=== PATIENT | male | born 1990 | race African-American/Black ===

== ENCOUNTER 2017-10-31 12:30 | Emergency (ER) | payer MEDICAID, OTHER ==
[~2017-10-31] VITALS: Ht 172.7 cm; Wt 54.0 kg
--- NOTE | 2017-10-31 12:36 | NUR ---
AMBULATORY IN A STEADY GAIT TO ED BED ,PT IS C/O N/V/D SINCE WEDNESDAY, EPIGASTRIC PAIN TODAY. FEELING WEAK. NAD VSS RR EVEN AND UNLABORED. PENDING ER MD EVALUATION
[2017-10-31] MEDS ORDERED: LIDOCAINE VISCOUS 2% UD 15 ML UDC ONE (13:13)
[2017-10-31] MEDS ORDERED: ONDANSETRON HCL/PF 4 MG/2 ML VIAL ONE (13:14)
[2017-10-31] MEDS ORDERED: MAG HYDROX/AL HYDROX/SIMETH 30 ML UDC ONE (13:14)
--- NOTE | 2017-10-31 13:20 | NUR ---
IV ACCESS STARTED. BLOOS DRAWN FOR LABS. MEDICATED ORDERED.
[2017-10-31 13:21] LABS: BASOPHILS % (AUTO) 0.3 % (0.0-2.0); EOSINOPHILS % (AUTO) 0.9 % (0.0-6.0); HEMATOCRIT 44 % (39-51); HEMOGLOBIN 14.2 g/dL (13.5-17.5); LYMPHOCYTES # (AUTO) 0.8 /CMM (0.8-4.8); MEAN CORPUSCULAR HEMOGLOBIN 29 PG (26.0-33.0); MEAN CORPUSCULAR HGB CONC 33 g/dl (31.0-36.0); MEAN CORPUSCULAR VOLUME 89 fL (80-96); MONOCYTES # (AUTO) 0.9 /CMM (0.1-1.30); MONOCYTES % (AUTO) 7.8 % (2.0-12.0); PLATELET COUNT (AUTO) 199 /CMM (150-450); RDW COEFFICIENT OF VARIATION 12.9 (11.5-15.0); RED BLOOD CELL COUNT(AUTO) 4.88 MIL/uL (4.5-6.0); WHITE BLOOD COUNT (AUTO) 11.8 K/uL (4.3-11.0)
[2017-10-31] MEDS ORDERED: MAG HYDROX/AL HYDROX/SIMETH 30 ML UDC PO ONE (13:30)
[2017-10-31] MEDS ORDERED: IV NS 0.9% 1,000 ML BAG IV ONE (13:30)
[2017-10-31] MEDS ORDERED: LIDOCAINE VISCOUS 2% UD 15 ML UDC MM ONE (13:30)
[2017-10-31] MEDS ORDERED: ONDANSETRON HCL/PF 4 MG/2 ML VIAL IVP ONE (13:30)
[2017-10-31 13:33] LABS: CALCIUM, SERUM 9.2 mg/dL (8.5-10.1); POTASSIUM 3.5 mmol/L (3.5-5.1)
[2017-10-31 13:38] LABS: ALBUMIN 3.6 g/dL (3.4-5.0); BILIRUBIN,DIRECT 0.1 mg/dL (0.0-0.2); BILIRUBIN,TOTAL 0.2 mg/dL (0.2-1.0); TOTAL PROTEIN, SERUM 8.1 g/dL (6.4-8.2)
[2017-10-31] MEDS ORDERED: METOCLOPRAMIDE HCL 10 MG/2 ML VIAL IV ONE (14:00)
[2017-10-31] MEDS ORDERED: METOCLOPRAMIDE HCL 10 MG/2 ML VIAL ONE (14:08)
--- NOTE | 2017-10-31 15:00 | NUR ---
IV removed. Catheter intact and site benign. Pressure and 4x4 applied to site. No bleeding noted.
--- NOTE | 2017-10-31 15:28 | NUR ---
Patient discharged to home in stable condition. Written and verbal after care instructions given. Patient verbalizes understanding of instruction.
[2017-10-31 15:31] VITALS: BP 117/74
[2017-10-31] MEDS ORDERED: EMTR1TAB17 PO (21:43)
[2017-10-31] MEDS ORDERED: DOLU10TA PO (21:44)
== END 2017-10-31 15:33 | disposition home or self-care (01) ==
LOC: ER 12:31
DX: K29.70 Gastritis, unspecified, without bleeding (principal); F12.10 Cannabis abuse, uncomplicated
CPT/HCPCS: 36415; 80048; 80076; 83690; 85025; 96361; 96374; 96375; 99284; A4606; J2405; J2765; J7030; Z7610

== ENCOUNTER 2017-10-31 17:28 | Inpatient (IN) | payer OTHER ==
[~2017-10-31] VITALS: Ht 172.7 cm; Wt 54.0 kg
[2017-10-31] MEDS ORDERED: IV NS 0.9% 1,000 ML BAG IV ONE (18:00)
[2017-10-31] MEDS ORDERED: FAMOTIDINE (20 MG) 20 MG TABLET PO ONE (18:00)
--- NOTE | 2017-10-31 18:00 | NUR ---
PT CAME BACK FOR SAME COMPLAINTS PREVIOUS/EARLIER ER VISIT- NAUSEA AND VOMITING. PER PT HE FELT BETTER AFTER DISCHARGE BUT EVENTUALLY STARTED THROWING UP AGAIN WITH NAUSEA, TOOK PRESCRIBED MEDS WITH NO RELIEF. SEEN BY ASSISTANT PLANT MANAGER FOR EVAL. IV ACCESS STARTED. MEDICATED ORDERED. SAFETY AND COMFORT MEASURES PROVIDED. WILL MONITOR.
[2017-10-31] MEDS ORDERED: FAMOTIDINE (20 MG) 20 MG TABLET ONE (18:07)
[2017-10-31] MEDS ORDERED: PROCHLORPERAZINE EDISYLATE 10 MG/2 ML VIAL ONE (18:18)
[2017-10-31] MEDS ORDERED: PROCHLORPERAZINE EDISYLATE 10 MG/2 ML VIAL IVP ONE (18:30)
[2017-10-31] MEDS ORDERED: IOHEXOL-300 100 ML VIAL IV ONE (19:11)
--- NOTE | 2017-10-31 19:16 | NUR ---
REPORT RECEIVED FROM JORDAN FRANCOIS FOR ROSEANNA.
[2017-10-31] MEDS ORDERED: HYDROMORPHONE INJ 2 MG/ML DISP.SYRIN ONE (19:22)
--- NOTE | 2017-10-31 19:25 | NUR ---
REPORT GIVEN TO STEFANY ORTEGA FOR ROSEANNA.
[2017-10-31] MEDS ORDERED: HYDROMORPHONE 1 MG/1 ML DISP.SYRIN IV ONE (19:30)
[2017-10-31] MEDS ORDERED: EMTR1TAB17 PO (21:43)
[2017-10-31] MEDS ORDERED: DOLU10TA PO (21:44)
[2017-10-31] MEDS ORDERED: CIPROFLOXACIN IV RTU 400 MG in PREMIX 1 EA IV SCH (22:00)
[2017-10-31] MEDS ORDERED: FLAGYL/NS RTU 500 MG/100 ML PIGGYBACK IV ONE (22:00)
[2017-10-31] MEDS ORDERED: CIPROFLOXACIN IV RTU 200 ML IV ONE (22:06)
--- NOTE | 2017-10-31 22:10 | NUR ---
LAB AT BEDSIDE TO DRAW BLOOD CULT X 2.
--- NOTE | 2017-10-31 22:16 | NUR ---
ASSIGNED TO MED SURG RM#: [id number], DX: PERIRECTAL ABSCESS, ACCEPTING: NATALIA VUONG NP
[2017-10-31 22:28] LABS: BASOPHILS % (AUTO) 0.1 % (0.0-2.0); HEMATOCRIT 37 % (39-51); HEMOGLOBIN 12.1 g/dL (13.5-17.5); LYMPHOCYTES # (AUTO) 0.8 /CMM (0.8-4.8); LYMPHOCYTES % (AUTO) 9.5 % (20.0-44.0); MEAN CORPUSCULAR HEMOGLOBIN 30 PG (26.0-33.0); MEAN CORPUSCULAR HGB CONC 33 g/dl (31.0-36.0); MEAN CORPUSCULAR VOLUME 92 fL (80-96); MONOCYTES # (AUTO) 0.4 /CMM (0.1-1.30); MONOCYTES % (AUTO) 4.6 % (2.0-12.0); NEUTROPHILS # (AUTO) 7.7 /CMM (1.8-8.9); NEUTROPHILS % (AUTO) 85.8 % (43.0-81.0); PLATELET COUNT (AUTO) 178 /CMM (150-450); RDW COEFFICIENT OF VARIATION 13.7 (11.5-15.0); RED BLOOD CELL COUNT(AUTO) 4.02 MIL/uL (4.5-6.0); WHITE BLOOD COUNT (AUTO) 8.9 K/uL (4.3-11.0)
--- NOTE | 2017-10-31 22:32 | NUR ---
Thuan madsen in [facility] - 10/31/17 at 2233 by TOBY ENDORSED TO MELISSA PALACIO FOR ROSEANNA.
--- NOTE | 2017-10-31 22:33 | NUR ---
ENDORSED TO JORDAN PALACIO FOR ROSEANNA. PT ADMIT TO MS RM 322.1.
[2017-10-31 22:35] VITALS: BP 117/72
--- NOTE | 2017-10-31 22:37 | NUR ---
APARTMENT COMMUNITY ASSISTANT MANAGER NOTES PT ARRIVED IN UNIT VIA WHEELCHAIR, ACCOMPANIED BY ER STAFF. PT IS ALERT AND ORIENTED X 4, NO SOB, BREATHING EVEN AND UNLABORED, DENIES NAUSEA/VOMITING AND PAIN AT THIS TIME. ORIENTED PT TO ROOM, UNIT, ADMISSION PROCESS, CALL LIGHT AND USE OF CALL LIGHT, PT VERBALIZED UNDERSTANDING. PATIENT WITH GOOD SAFETY AWARENESS, PLACED BED IN LOW POSITION, LOCKED IN PLACE, CALL LIGHT WITHIN EASY REACH. WILL CONTINUE TO MONITOR PT.
--- NOTE | 2017-10-31 22:37 | NUR ---
FLAGYL 500MG IV ENDORSED TO FLOOR.
--- NOTE | 2017-10-31 22:40 | NUR ---
PT TRANSPORTED TO MS 322.1 VIA WC WITH EMT. VSS.
[2017-10-31 22:43] LABS: CALCIUM, SERUM 8.2 mg/dL (8.5-10.1); CREATININE 0.8 mg/dL (0.6-1.3); INR 1.1 (0.87-1.13); POTASSIUM 3.5 mmol/L (3.5-5.1)
[2017-10-31 22:45] LABS: BILIRUBIN,DIRECT 0.1 mg/dL (0.0-0.2); BILIRUBIN,TOTAL 0.2 mg/dL (0.2-1.0); TOTAL PROTEIN, SERUM 6.8 g/dL (6.4-8.2)
[2017-10-31] MEDS ORDERED: MAGNESIUM HYDROXIDE 30 ML UDC PO PRN (23:30)
[2017-10-31] MEDS ORDERED: DOLUTEGRAVIR 10 MG PO SCH (23:30)
[2017-10-31] MEDS ORDERED: DESCOVY PO SCH (23:30)
[2017-10-31] MEDS ORDERED: ACETAMINOPHEN 325 MG TABLET PO PRN (23:30)
[2017-10-31] MEDS ORDERED: HYDROCODONE/APAP 5/325MG 1 EACH TABLET PO PRN (23:30)
[2017-10-31] MEDS ORDERED: Z GUARD REMEDY 2 OZ OINT TP PRN (23:30)
[2017-10-31] MEDS ORDERED: MAG HYDROX/AL HYDROX/SIMETH 30 ML UDC PO PRN (23:30)
[2017-10-31] MEDS: IV NS 0.9% 1,000 ML IV PRN (23:46)
[2017-11-01] MEDS ORDERED: CIPROFLOXACIN IV RTU 400 MG in PREMIX 1 EA IV SCH ×2
--- NOTE | 2017-11-01 00:45 | NUR ---
RN NOTES CIPRO IV NOT ADMINISTERED, FIRST DOSE STARTED IN ER.
[2017-11-01] MEDS: ONDANSETRON HCL/PF 4 MG/2 ML VIAL IVP PRN ×2 (01:17→07:57)
[2017-11-01] MEDS: MORPHINE SULFATE INJ 2 MG/ML DISP.SYRIN IV PRN ×2 (01:39→10:52)
[2017-11-01] MEDS ORDERED: METRONIDAZOLE 500MG/ NS 100ML 100 ML IV ONE (05:39)
[2017-11-01] MEDS: METRONIDAZOLE 500MG/ NS 100ML 500 MG in PREMIX 1 EA IV SCH ×5 (05:42→18:36)
--- NOTE | 2017-11-01 07:14 | NUR ---
RN CLOSING NOTES PATIENT IN BED, ALERT, AWAKE AND ORIENTED, ALL PATIENT'S NEEDS ATTENDED TO THROUGHOUT THE SHIFT. IVF INFUSING WELL ORDERED VIA OUTER DIAMETER GRINDER ON RAC. PLACED BED IN LOW POSITION, LOCKED IN PLACE AND CALL LIGHT WITHIN EASY REACH. WILL ENDORSE TO AM SHIFT NURSE FOR CONTINUITY OF CARE.
--- NOTE | 2017-11-01 07:30 | NUR ---
PT RECEIVED RESTING COMFORTABLY IN BED. NO S/S OR C/O PAIN OR DISTRESS NOTED. SIDE RAILS UP X2, CALL LIGHT LEFT WITHIN REACH. WILL CONTINUE PLAN OF CARE.
[2017-11-01 08:00] VITALS: BP 126/74
[2017-11-01] MEDS: CIPROFLOXACIN IV RTU 400 MG in PREMIX 1 EA IV SCH ×2 (10:38→21:51)
[2017-11-01] MEDS: POLYETHYLENE GLYCOL 3350 17 GM POWD.PACK PO SCH ×2 (14:00→22:00)
[2017-11-01 16:00] VITALS: BP 110/67
[2017-11-01 16:13] LABS: BASOPHILS % (AUTO) 0.3 % (0.0-2.0); EOSINOPHILS % (AUTO) 0.2 % (0.0-6.0); HEMATOCRIT 39 % (39-51); HEMOGLOBIN 12.6 g/dL (13.5-17.5); LYMPHOCYTES # (AUTO) 1.2 /CMM (0.8-4.8); LYMPHOCYTES % (AUTO) 23.2 % (20.0-44.0); MEAN CORPUSCULAR HEMOGLOBIN 30 PG (26.0-33.0); MEAN CORPUSCULAR HGB CONC 33 g/dl (31.0-36.0); MEAN CORPUSCULAR VOLUME 92 fL (80-96); MONOCYTES # (AUTO) 0.6 /CMM (0.1-1.30); MONOCYTES % (AUTO) 11.6 % (2.0-12.0); NEUTROPHILS # (AUTO) 3.4 /CMM (1.8-8.9); NEUTROPHILS % (AUTO) 64.7 % (43.0-81.0); PLATELET COUNT (AUTO) 192 /CMM (150-450); RDW COEFFICIENT OF VARIATION 13.6 (11.5-15.0); WHITE BLOOD COUNT (AUTO) 5.2 K/uL (4.3-11.0)
[2017-11-01 16:25] LABS: CALCIUM, SERUM 7.9 mg/dL (8.5-10.1); CREATININE 0.8 mg/dL (0.6-1.3); MAGNESIUM 1.9 mg/dL (1.8-2.4); PHOSPHORUS 3.3 mg/dL (2.5-4.9); POTASSIUM 3.2 mmol/L (3.5-5.1)
[2017-11-01 16:37] LABS: THYROID STIMULATING HORMONE 1.895 uIU/mL (0.358-3.74)
--- NOTE | 2017-11-01 18:32 | NUR ---
CHANGE OF SHIFT REPORT PT RESTING COMFORTABLY IN BED. NO S/S OR C/O PAIN OR DISTRESS NOTED. SIDE RAILS UP X2, CALL LIGHT LEFT WITHIN REACH. PT KEPT CLEAN, DRY, AND COMFORTABLE. NO SIGNIFICANT CHANGES SINCE PREVIOUS SHIFT. WILL GIVE REPORT TO MEENAKSHI ORTEGA.
[2017-11-01 20:00] VITALS: BP 125/75
--- NOTE | 2017-11-01 20:00 | NUR ---
RN NOTES PATIENT IS ALERT AND ORIENTED X4, NO SOB, NO RESPIRATORY DISTRESS, NO COMPLAIN OF ABDOMINAL PAIN, SEEN AMBULATING IN ROOM AND HALLWAY. ON CLEAR LIQUID DIET WILL ADVANCE TOLERATED, FAMILY MEMBERS AT THE BEDSIDE, WILL CONTINUE TO MONITOR
[2017-11-01 22:00] VITALS: BP 125/75
[2017-11-01] MEDS ORDERED: ZOLPIDEM TARTRATE 5 MG TABLET PO ONE (23:00)
[2017-11-02] MEDS: METRONIDAZOLE 500MG/ NS 100ML 500 MG in PREMIX 1 EA IV SCH ×4 (00:10→17:59)
[2017-11-02] MEDS: IV NS 0.9% 1,000 ML IV PRN (05:43)
--- NOTE | 2017-11-02 06:30 | NUR ---
RN NOTES PATIENT IS ALERT AND AWAKE, NO DISTRESS, DENIES ABDOMINAL PAIN DURING SHIFT, SLEPT FOR 6 HOURS, ALL IV ABX GIVEN, NO ADVERSE CHANGE OF CONDITION DURING SHIFT, NEEDS ATTENDED, CALL LIGHT WITHIN REACH.
[2017-11-02 06:58] LABS: BASOPHILS % (AUTO) 0.5 % (0.0-2.0); EOSINOPHILS % (AUTO) 1.6 % (0.0-6.0); HEMATOCRIT 40 % (39-51); LYMPHOCYTES # (AUTO) 1.3 /CMM (0.8-4.8); LYMPHOCYTES % (AUTO) 27.1 % (20.0-44.0); MEAN CORPUSCULAR HEMOGLOBIN 31 PG (26.0-33.0); MEAN CORPUSCULAR HGB CONC 33 g/dl (31.0-36.0); MEAN CORPUSCULAR VOLUME 93 fL (80-96); MONOCYTES # (AUTO) 0.5 /CMM (0.1-1.30); MONOCYTES % (AUTO) 9.2 % (2.0-12.0); NEUTROPHILS % (AUTO) 61.6 % (43.0-81.0); PLATELET COUNT (AUTO) 180 /CMM (150-450); RDW COEFFICIENT OF VARIATION 13.7 (11.5-15.0); RED BLOOD CELL COUNT(AUTO) 4.27 MIL/uL (4.5-6.0); WHITE BLOOD COUNT (AUTO) 4.9 K/uL (4.3-11.0)
--- NOTE | 2017-11-02 07:22 | NUR ---
MS RN OPENING NOTES RECEIVED PATIENT AWAKE IN BED IN NO ACUTE SIGNS OF DISTRESS. ALERT AND ORIENTED X4. ABLE TO MAKE NEEDS KNOWN, NO C/O PAIN OR DISCOMFORTS VOICED AT THIS TIME. ON ROOM AIR, BREATHING EVEN AND UNLABORED. IV ACCESS ON RIGHT AC G #20 INTACT AND PATENT, IVF OF NS @ 50ML/HR INFUSING, NO S/S OF INFILTRATION NOTED. SAFETY MEASURES IN PLACE. BED IN LOW/LOCKED POSITION WITH SIDE-RAILS UP X2. CALL LIGHT WITHIN REACH. WILL CONTINUE TO MONITOR PT ACCORDINGLY.
[2017-11-02 07:26] LABS: CALCIUM, SERUM 8.2 mg/dL (8.5-10.1); MAGNESIUM 1.8 mg/dL (1.8-2.4); PHOSPHORUS 4.1 mg/dL (2.5-4.9); POTASSIUM 3.3 mmol/L (3.5-5.1)
[2017-11-02 08:00] VITALS: BP 122/69
--- NOTE | 2017-11-02 09:26 | NUR ---
RN NOTES PATIENT ON FULL LIQUIDS DIET AT BREAKFAST AND TOLERATED WITHOUT C/O N/V AND NO COMPLAINTS OF ABDOMINAL PAIN. PT ADVANCED DIET TO SOFT AT LUNCH TIME . WILL CONTINUE TO MONITOR.
[2017-11-02] MEDS ORDERED: LEVO500T75 PO (10:39)
[2017-11-02] MEDS: CIPROFLOXACIN IV RTU 400 MG in PREMIX 1 EA IV SCH (11:25)
[2017-11-02] MEDS ORDERED: POTASSIUM CHLORIDE 20 MEQ TAB.PRT.SR PO SCH (12:00)
[2017-11-02 16:00] VITALS: BP 120/72
--- NOTE | 2017-11-02 19:08 | NUR ---
RN DISCHARGED NOTES PATIENT DISCHARGED HOME IN STABLE CONDITION. A/O X4, SAME VERBALLY RESPONSIVE WITH NO C/O PAIN OR DISCOMFORTS VOICED DURING DISCHARGE. . V/S TAKEN AND RECORDED. ALL BELONGINGS ACCOUNTED FOR AND SIGNED FOR. SMOKING SECESSION EDUCATION AND OTHER HEALTH TEACHINGS GIVEN TO PT AND VERBALIZED UNDERSTANDING. PT LEFT UNIT AT 1900 AMBULATORY ACCOMPANIED BY HIS SISTER. MD AND CHARGE NURSE AWARE OF DISCHARGE.
[2017-11-03 08:10] LABS: *BASOS 0 % (Not Estab.); *EOS 2 % (Not Estab.); *EOS, ABSOLUTE 0.1 x10E3/uL (0.0-0.4); *HCT 37.8 % (37.5-51.0); *HGB 12.6 g/dL (13.0-17.7); *IMMATURE GRANULOCYTES 0 % (Not Estab.); *LYMPHOCYTES 32 % (Not Estab.); *LYMPHS, ABSOLUTE 1.5 x10E3/uL (0.7-3.1); *MCH 30.4 pg (26.6-33.0); *MCHC 33.3 g/dL (31.5-35.7); *MCV 91 fL (79-97); *MONOCYTES 8 % (Not Estab.); *MONOS, ABSOLUTE 0.4 x10E3/uL (0.1-0.9); *NEUTROPHILS 58 % (Not Estab.); *NEUTROPHILS, ABSOLUTE 2.7 x10E3/uL (1.4-7.0); *PLT 198 x10E3/uL (150-379); *RBC 4.14 x10E6/uL (4.14-5.80); *RDW 14.1 % (12.3-15.4)
[2017-11-03 18:11] LABS: *% CD 4 POS. LYMPH 25.3 % (30.8-58.5); *ABSOLUTE CD 4 HELPER 380 /uL (359-1519); *ABSOLUTE CD 8 SUPPRESSOR 735 /uL (109-897); *CD4/CD8 RATIO 0.52 (0.92-3.72)
== END 2017-11-02 20:16 | disposition home or self-care (01) | DRG 894 ==
LOC: ER 17:29 → MED 22:24
PROVIDERS: ADMIT Nurse Practitioner Acute Care; ATTEND Nurse Practitioner Acute Care
DX: K61.1 Rectal abscess (principal); B20 Human immunodeficiency virus [HIV] disease; E44.1 Mild protein-calorie malnutrition; N41.9 Inflammatory disease of prostate, unspecified; K52.9 Noninfective gastroenteritis and colitis, unspecified; Z79.899 Other long term (current) drug therapy; F17.200 Nicotine dependence, unspecified, uncomplicated; Z91.14 Patient's other noncompliance with medication regimen; Z82.49 Family history of ischemic heart disease and other diseases of the circulatory system; Z80.0 Family history of malignant neoplasm of digestive organs; F12.90 Cannabis use, unspecified, uncomplicated; D63.8 Anemia in other chronic diseases classified elsewhere; F31.9 Bipolar disorder, unspecified; K29.70 Gastritis, unspecified, without bleeding; K64.9 Unspecified hemorrhoids; K62.5 Hemorrhage of anus and rectum
CPT/HCPCS: 36415; 76705-TC; 80048-TC; 80061-TC; 80076-TC; 83520; 83605-TC; 83735-TC; 84100-TC; 84443-TC; 85025-TC; 85730-TC; 86256; 86360; 86780; 87040-TC; 87081-TC; A4216; A4606; J0744; J0780; J1170; J2270; J2405; J3490; J7030; Q9967; Z7610

== ENCOUNTER 2018-11-06 10:35 | Inpatient (IN) | payer MEDICAID, OTHER ==
[~2018-11-06] VITALS: Ht 172.7 cm; Wt 48.1 kg
[~2018-11-06 10:35] MED LIST: DOLU10TA PO; EMTR1TAB17 PO; LEVO500T75 PO
--- NOTE | 2018-11-06 10:45 | NUR ---
CAME IN FOR C/O FEVER, COUGH AND CONGESTION, BODY ACHES, LOSS OF APETITE X 3 WEEKS. TO ER BED 11, HOOKED TO MONITOR, PROVIDED W WARM BLANKET, FAMILY AT BEDSIDE, AWAITING MD PARMAR.
--- NOTE | 2018-11-06 11:28 | NUR ---
Thuan madsen in [facility] - 11/06/18 at 1130 by KDABBAGHIA RECIEVED [id number] CARR IS NURSE FOR REPORT.
--- NOTE | 2018-11-06 11:30 | NUR ---
DR TALAMANTES AT BEDSIDE
--- NOTE | 2018-11-06 11:30 | NUR ---
DR TALAMANTES AT BEDSIDE
[2018-11-06 11:59] LABS: BASOPHILS % (AUTO) 0.6 % (0.0-2.0); EOSINOPHILS % (AUTO) 0.2 % (0.0-6.0); HEMATOCRIT 38 % (39-51); HEMOGLOBIN 12.7 g/dL (13.5-17.5); LYMPHOCYTES # (AUTO) 0.4 /CMM (0.8-4.8); LYMPHOCYTES % (AUTO) 7.8 % (20.0-44.0); MEAN CORPUSCULAR HGB CONC 33 g/dl (31.0-36.0); MEAN CORPUSCULAR VOLUME 87 fL (80-96); MONOCYTES # (AUTO) 0.3 /CMM (0.1-1.30); MONOCYTES % (AUTO) 5.8 % (2.0-12.0); NEUTROPHILS % (AUTO) 85.6 % (43.0-81.0); PLATELET COUNT (AUTO) 168 /CMM (150-450); WHITE BLOOD COUNT (AUTO) 4.6 K/uL (4.3-11.0)
[2018-11-06] MEDS ORDERED: CEFTRIAXONE 1GM BAG (ER ONLY) 1 GM/50 ML PIGGYBACK IV ONE (12:00)
[2018-11-06] MEDS ORDERED: IV NS 0.9% 1,000 ML BAG IV ONE (12:00)
[2018-11-06] MEDS ORDERED: AZITHROMYCIN 500 MG in IV D5W 250 ML IV ONE (12:00)
[2018-11-06 12:09] LABS: CALCIUM, SERUM 8.9 mg/dL (8.5-10.1); CARBON DIOXIDE 26 mmol/L (21-32); CHLORIDE 100 mmol/L (98-107); CREATININE 1.1 mg/dL (0.6-1.3); GLUCOSE 90 mg/dL (74-106); POTASSIUM 3.6 mmol/L (3.5-5.1); SODIUM SERUM 139 mmol/L (136-145); UREA NITROGEN, BLOOD 14 mg/dL (7-18)
[2018-11-06 12:15] LABS: ALANINE AMINOTRANSFERASE 21 U/L (12-78); ALBUMIN 3.1 g/dL (3.4-5.0); ALKALINE PHOSPHATASE 48 U/L (46-116); ASPARTATE AMINOTRANSFERASE 19 U/L (15-37); BILIRUBIN,DIRECT 0.2 mg/dL (0.0-0.2); BILIRUBIN,TOTAL 0.4 mg/dL (0.2-1.0); TOTAL PROTEIN, SERUM 8.3 g/dL (6.4-8.2)
--- NOTE | 2018-11-06 12:36 | NUR ---
RECIEVED BED 317
[2018-11-06] MEDS ORDERED: ONDANSETRON HCL/PF 4 MG/2 ML VIAL ONE (12:43)
[2018-11-06] MEDS ORDERED: SULFAMETHOXAZOLE/TRIMETHOPRIM 15 ML in IV D5W 250 ML IV SCH (13:00)
[2018-11-06] MEDS ORDERED: ONDANSETRON HCL/PF - ER 4 MG/2 ML VIAL IV ONE (13:00)
[2018-11-06] MEDS ORDERED: METOCLOPRAMIDE HCL 10 MG/2 ML VIAL ONE (13:27)
[2018-11-06] MEDS ORDERED: METOCLOPRAMIDE HCL 10 MG/2 ML VIAL IV ONE (13:30)
[2018-11-06 13:52] LABS: APPEARANCE,URINE Clear (CLEAR); BILIRUBIN,URINE Negative (NEGATIVE); BLOOD, URINE Negative Ery/uL (NEGATIVE); COLOR,URINE Yellow (YELLOW); KETONES,URINE Negative (NEGATIVE); LEUKOCYTE ESTERASE ,URINE Negative (NEGATIVE); NITRITE, URINE Negative (NEGATIVE); PH,URINE 6.5 (5.0-8.0); PROTEIN,URINE Negative (NEGATIVE); UGLUCOSE Negative (NEGATIVE); UROBILINOGEN,URINE 0.2 EU/dL (0.2)
--- NOTE | 2018-11-06 14:30 | NUR ---
REPORT GIVEN TO TO ORTEGA OF MS UNIT
--- NOTE | 2018-11-06 14:50 | NUR ---
RN MS NOTES RECEIVED PT FROM E.R. STAFF VIA [facility], ASSISTED TO BED, MADE COMFORTABLE, PT AWAKE, ALERT AND ORIENTED, WITH COMPLAINT OF NOT BEING COMFORTABLE AND ACHY ALL OVER, NOT IN DISTRESS, TOLERATING ROOM AIR, ROOM SET UP ORIENTATION PROVIDED TO PT, VERBALIZED UNDERSTANDING, PARTIAL SKIN CHECK DONE, NO SKIN PROBLEM NOTED, PT PREFERS TO WEAR HIS PANTS FOR NOW, PT ABLE TO AMBULATE TO THE BATHROOM WITH STEADY GAIT, AWAITING ADMITTING ORDER FROM .
[2018-11-06 15:00] VITALS: BP 121/72
[2018-11-06] MEDS ORDERED: Z GUARD REMEDY 2 OZ OINT TP PRN (16:00)
[2018-11-06] MEDS ORDERED: ACETAMINOPHEN 325 MG TABLET PO PRN (16:00)
[2018-11-06] MEDS ORDERED: ZOLPIDEM TARTRATE 5 MG TABLET PO PRN (16:00)
[2018-11-06] MEDS ORDERED: ONDANSETRON HCL/PF 4 MG/2 ML VIAL IVP PRN (16:00)
[2018-11-06] MEDS ORDERED: HYDROCODONE/APAP 5/325MG 1 EACH TABLET PO PRN (16:00)
[2018-11-06] MEDS ORDERED: MAGNESIUM HYDROXIDE 30 ML UDC PO PRN (16:00)
[2018-11-06 16:03] VITALS: BP 121/100
[2018-11-06] MEDS: IV D5/ 0.9% NACL 1,000 ML IV PRN (16:20)
[2018-11-06] MEDS: METOCLOPRAMIDE HCL 10 MG/2 ML VIAL IV SCH ×2 (16:20→21:26)
[2018-11-06] MEDS: NYSTATIN (PYXIS) 500,000 UNIT/5 ML ORAL.SUSP PO SCH (16:20)
[2018-11-06] MEDS: MORPHINE SULFATE INJ 2 MG/ML DISP.SYRIN IV PRN ×2 (16:21→20:05)
[2018-11-06] MEDS: ENSURE ENLIVE CHOC 237 ML CAN PO SCH (18:17)
--- NOTE | 2018-11-06 18:37 | NUR ---
RN MS NOTES PT IN BED, ASLEEP, EASY TO AROUSE, STATED THAT HIS PAIN IS BETTER, NAUSEA/VOMITING SUBSIDED AFTER REGLAN ADMINISTRATION, PT REFUSES IV FLUIDS AT THIS TIME, STATED THAT HE HAD ENOUGH FLUIDS FOR THE DAY AND PREFERS TO HAVE IT LATER, ENCOURAGED PO INTAKE, CALL LIGHT PLACED WITHIN REACH.
--- NOTE | 2018-11-06 19:15 | NUR ---
RN MS PM OPENING NOTE BEDSIDE REPORT RECIEVED FROM AMERICO ORTEGA. PT IN BED, AWAKE ALERT AND ORIENTED. REVIEWED POC QUESTIONS CONCERNS ADDRESSED. PT AGREEING TO BE CONNECTED TO IV FLUIDS SO PATIENT CONTTED AND D5NS STARTED AT 100 ML /HR. PATIENT REPORTS HAVING SOME NAUSEA WITH SOME LOWER ABD CRAMPS 07/13 REVIEWED PAIN MANAGEMENT PLAN VERBALIZED UNDERSTANDING. ENCOURAGED PO INTAKE IF TOLERATING, CALL LIGHT WITHIN REACH. VERBALIZED UNDERSTANDING TO CALL FOR ASSISTANCE NEEDED.
[2018-11-06 20:00] VITALS: BP 119/74
[2018-11-06] MEDS ORDERED: LORAZEPAM 1 MG TABLET PO PRN (20:30)
[2018-11-07] MEDS: METOCLOPRAMIDE HCL 10 MG/2 ML VIAL IV SCH ×2 (04:52→09:56)
[2018-11-07] MEDS: IV D5/ 0.9% NACL 1,000 ML IV PRN (05:06)
--- NOTE | 2018-11-07 06:30 | NUR ---
RN MS PM CLOSING NOTE PT IN BED, AWAKE ALERT AND ORIENTED. REVIEWED POC QUESTIONS CONCERNS ADDRESSED. IVF INFUSING D5NS AT 100 ML /HR. PATIENT REPORTS THAT NAUSEA HAS SUBSIDED, DENIES PAIN. ENCOURAGED PO INTAKE IF TOLERATING, CALL LIGHT WITHIN REACH. VERBALIZED UNDERSTANDING TO CALL FOR ASSISTANCE NEEDED. SPUTUM SAMPLE COLLECTED. MRSA SAMPLE COLLECTED.
[2018-11-07 07:32] LABS: CALCIUM, SERUM 8.4 mg/dL (8.5-10.1); CREATININE 0.8 mg/dL (0.6-1.3); MAGNESIUM 1.9 mg/dL (1.8-2.4); PHOSPHORUS 3.5 mg/dL (2.5-4.9); POTASSIUM 3.2 mmol/L (3.5-5.1)
[2018-11-07 07:36] LABS: BASOPHILS % (AUTO) 0.2 % (0.0-2.0); EOSINOPHILS % (AUTO) 0.1 % (0.0-6.0); HEMATOCRIT 32 % (39-51); HEMOGLOBIN 10.7 g/dL (13.5-17.5); LYMPHOCYTES # (AUTO) 0.4 /CMM (0.8-4.8); LYMPHOCYTES % (AUTO) 20.3 % (20.0-44.0); MEAN CORPUSCULAR HGB CONC 33 g/dl (31.0-36.0); MEAN CORPUSCULAR VOLUME 86 fL (80-96); MONOCYTES # (AUTO) 0.3 /CMM (0.1-1.30); MONOCYTES % (AUTO) 13.5 % (2.0-12.0); NEUTROPHILS # (AUTO) 1.3 /CMM (1.8-8.9); NEUTROPHILS % (AUTO) 65.9 % (43.0-81.0); PLATELET COUNT (AUTO) 173 /CMM (150-450); RED BLOOD CELL COUNT(AUTO) 3.74 MIL/uL (4.5-6.0)
[2018-11-07 07:57] VITALS: BP 121/81
--- NOTE | 2018-11-07 08:00 | NUR ---
RN NOTES RECEIVED PATIENT IN THE BED SLEEPING. PATIENT HAS NO ACUTE RESPIRATORY DISTRESS, V/S STABLE. INFUSING D5 1/2 NS AT 100 ML/HR ON RIGHT AC AREA INTACT. CALL LIGHT WITHIN TO REACH. CONTINUED MONITORING.
[2018-11-07 08:06] LABS: *BASOS 0 % (Not Estab.); *EOS 0 % (Not Estab.); *HCT 37.2 % (37.5-51.0); *HGB 12.2 g/dL (13.0-17.7); *IMMATURE GRANULOCYTES 0 % (Not Estab.); *LYMPHOCYTES 9 % (Not Estab.); *LYMPHS, ABSOLUTE 0.4 x10E3/uL (0.7-3.1); *MCHC 32.8 g/dL (31.5-35.7); *MCV 86 fL (79-97); *MONOCYTES 7 % (Not Estab.); *MONOS, ABSOLUTE 0.3 x10E3/uL (0.1-0.9); *NEUTROPHILS 84 % (Not Estab.); *PLT 174 x10E3/uL (150-450); *RBC 4.35 x10E6/uL (4.14-5.80); *RDW 13.6 % (12.3-15.4)
[2018-11-07] MEDS: NYSTATIN (PYXIS) 500,000 UNIT/5 ML ORAL.SUSP PO SCH (08:40)
[2018-11-07] MEDS: ENSURE ENLIVE CHOC 237 ML CAN PO SCH (08:40)
[2018-11-07 08:43] LABS: BAND % (MANUAL) 5 % (0.0-5.0); LYMPHOCYTES % (MANUAL) 24 % (16-48); MONOCYTES % (MANUAL) 13 % (0-11.0); NEUTROPHILS % (MANUAL) 58 (42-76)
[2018-11-07] MEDS: POTASSIUM CHLORIDE 20 MEQ TAB.PRT.SR PO SCH ×2 (09:56→10:34)
[2018-11-07 10:07] LABS: *% CD 4 POS. LYMPH 16.9 % (30.8-58.5); *ABSOLUTE CD 4 HELPER 68 /uL (359-1519); *ABSOLUTE CD 8 SUPPRESSOR 220 /uL (109-897); *CD4/CD8 RATIO 0.31 (0.92-3.72)
--- NOTE | 2018-11-07 11:20 | NUR ---
GRUBBER NOTES PATIENT LEFT AMA PERSONALLY EXPLAINED TO THE PATIENT RISKS AND CONSEQUENCES. PATIENT DECIDE TO LEAVE AMS, PATIENT SIGN AMA FORM, AND BELONGING LIST. REMOVED IV ACCESS. PATIENT HAS HIS BELONGING. PATIENT LEFT WITH FAMILY. HOSPITALIST LEAH WHITE AWARE OF.
--- NOTE | 2018-11-07 11:26 | NUR ---
Social service consult requested by CINDY Liu for non-compliance with HIV medication. Pt. is a 28 year old male who was admitted to [facility] for congestion bodyaches and loss of appetite for 3 weeks. He is HIV positive and has been off medication for the past 8 months. Patient has unknown CD4 count unknown viral load. He says his last 15 pounds over the past 3 weeks. SW unable to assist pt. due to pt. leaving [facility] AMA. Per MARU Gonzalez, pt. became verbally abusive to staff and left AMA.
== END 2018-11-07 11:15 | disposition left against medical advice (07) | DRG 894 ==
LOC: ER 10:35 → MED 13:01
PROVIDERS: ADMIT Nurse Practitioner Acute Care; ATTEND Nurse Practitioner Acute Care
DX: B20 Human immunodeficiency virus [HIV] disease (principal); B37.0 Candidal stomatitis; E44.1 Mild protein-calorie malnutrition; D63.8 Anemia in other chronic diseases classified elsewhere; F31.9 Bipolar disorder, unspecified; Z79.899 Other long term (current) drug therapy; K52.9 Noninfective gastroenteritis and colitis, unspecified; Z91.14 Patient's other noncompliance with medication regimen; Z82.49 Family history of ischemic heart disease and other diseases of the circulatory system; G47.00 Insomnia, unspecified; F17.200 Nicotine dependence, unspecified, uncomplicated
CPT/HCPCS: 36415; 71045-TC; 80048-TC; 80061-TC; 80076-TC; 80305; 81000-TC; 83605-TC; 83735-TC; 84100-TC; 84484-TC; 85025-TC; 85730-TC; 86360; 86701; 87040-TC; 87070-TC; 87081-TC; 87086-TC; 87806; 87899; A4216; G0378; J0456; J0696; J2270; J2405; J2765; J3490; J7030; J7040; J7042; J7060